=== PATIENT | female | born 1950 | race Caucasian/White ===

== ENCOUNTER 2017-02-13 17:18 | Emergency (ER) | payer BC ==
[~2017-02-13] VITALS: Ht 175.3 cm; Wt 115.0 kg
[2017-02-13 17:54] VITALS: BP 156/78
[2017-02-13] MEDS ORDERED: HYDR-971 PO (18:42)
--- NOTE | 2017-02-13 18:42 | PHYS DOC ---
Past History Past Medical History: Cancer, High Cholesterol, Hypertension Past Surgical History: Cancer Surgery, Hysterectomy Alcohol Use: None Drug Use: None Adult General Chief Complaint Chief Complaint: LOWEREXTREMITY INJURY HPI HPI Patient is a 66 year old female who presents with lower extremity injury. The patient states just prior to arrival she was loading some wood into a truck, her foot slipped on the gravel, & she experienced right ankle inversion injury. States she fell onto her knee, now complains of knee, calf, & ankle pain. Difficulty bearing weight prior to arrival. Denies dizziness or syncope contributing to fall, also denies any head trauma or loss of consciousness. No previous ankle or knee injuries or surgeries. Last tetanus < 5 years ago. Review of Systems Review of Systems Constitutional: Denies fever or chills HENT: Denies nasal congestion or sore throat Respiratory: Denies cough or shortness of breath Cardiovascular: Denies chest pain GI: Denies abdominal pain, nausea, vomiting Musculoskeletal: Reports lower extremity pain Integument: Denies rash Neurologic: Denies headache All other systems were reviewed and found to be within normal limits, except as documented in this note. Allergies Allergies Allergies Coded Allergies Type Severity Reaction Last Updated Verified morphine Allergy Unknown 02/13/17 Yes Physical Exam Physical Exam Constitutional: obese, no acute distress, non-toxic appearance. HENT: Normocephalic, atraumatic, bilateral external ears normal, oropharynx moist, nose normal. Eyes: conjunctiva normal, no discharge. Cardiovascular: no edema. Lungs & Thorax: no respiratory distress. Abdomen: nondistended. Skin: Warm, dry, no erythema, no rash. Extremities: right lower extremity mild hip & knee tenderness diffusely, no swelling or deformity to either joint. proximal tib/fib tenderness. lateral malleolus swelling & tenderness. no metatarsal tenderness with palpation. normal ROM to hip & knee without pain, painful to dorsiflex/plantarflex at ankle. straight leg raise is intact. dp/pt 2+, sensation intact to foot. tiny abrasion inferior to the patella, no laceration. Neurologic: Alert and oriented X 3, no focal deficits noted. Psychologic: Affect normal, judgement normal, mood normal. Current Patient Data Vital Signs Vital Signs Date Time Temp Pulse Resp B/P (MAP) Pulse Ox O2 Delivery O2 Flow Rate FiO2 02/13/17 17:54 98.3 79 20 96 Room Air EKG EKG [] Radiology/Procedures Radiology/Procedures XR R hip, 2 views, interpreted by me: no fracture or dislocation, no acute process. XR R knee, 3 views: interpreted by me: no fracture or dislocation, no acute process. XR R tib/fib, 3 views: interpreted by me: distal fibula fracture, otherwise no proximal fracture. XR R ankle, 3 views: interpreted by me: distal fibula fracture, oblique, minimally displaced, & nondisplaced posterior malleolus fracture, no dislocation.[] Course & Med Decision Making Course & Med Decision Making Pertinent Labs and Imaging studies reviewed. (See chart for details) The patient presents with lower extremity injury. She complained of knee, tib/ fib, ankle pain but developed hip pain while in x-ray. She has bimalleolar fracture, not significantly displaced, posterior ankle splint with padding applied by ED glass pulverizer equipment operator, placement confirmed by me with intact neurovascular status after splint applied. Crutches/crutch training provided. Recommend rest , elevation, nonweightbearing, norco PRN for pain. Follow up with Dr. Griffith in the orthopedic clinic within 1 week. Come back for neurovascular compromise or otherwise worsening condition. Discharged home in stable condition. [] Dragon Disclaimer Dragon Disclaimer This electronic medical record was generated, in whole or in part, using a voice recognition dictation system. Departure Departure: Impression: Primary Impression: Fracture of distal fibula Additional Impression: Fracture, posterior malleolus Disposition: 01 HOME, SELF-CARE Condition: STABLE Referrals: PCP,NO (PCP) MATTHEW GRIFFITH MD Patient Instructions: Ankle Fracture, [id number] Additional Instructions: You were seen in the emergency department today for ankle fracture. Please keep the splint clean & dry. Elevate leg, use crutches & do not bear weight on your ankle. Take norco as needed for severe pain. No drinking alcohol or driving while taking this medication. Follow up with Dr. Griffith in the orthopedic clinic within the next week. Come back for splint that is too tight or otherwise worsening condition. Scripts Hydrocodone Bit/Acetaminophen (NORCO 5-325 TABLET) 1 Each Tablet 1-2 TAB PO Q4-6HRS Y for SEVERE PAIN, #10 TAB Prov: MEL OWEN MD 02/13/17 Problem Qualifiers Primary Impression: Fracture of distal fibula Encounter type: initial encounter Fracture type: closed Fracture morphology : unspecified fracture morphology Laterality: right Qualified Codes: S82.831A - Other fracture of upper and lower end of right fibula, initial encounter for closed fracture Additional Impression: Fracture, posterior malleolus Encounter type: initial encounter Fracture type: closed Laterality: right Qualified Codes: S82.391A - Other fracture of lower end of right tibia, initial encounter for closed fracture MEL OWEN MD Feb 13, 2017 18:42
--- NOTE | 2017-02-14 07:32 | RAD ---
3 views right ankle radiograph 02/13/2017 Clinical indication: Fall with right ankle pain. Comparison: None. Findings: There is an oblique fracture of the lateral malleolus extending to the level of the syndesmosis with minimal posterior displacement of the distal fracture fragment. Joint spaces are maintained. There are 2 subcentimeter calcific densities adjacent to the medial malleolus which may be sequela of old injury. Infracalcaneal sprain. Enthesophyte formation at the insertion of the Achilles on the calcaneus. There is diffuse soft tissue swelling throughout the ankle. Impression: Minimally displaced lateral malleolus fracture extending to the level of the syndesmosis.
--- NOTE | 2017-02-14 07:33 | RAD ---
2 views right tibia and fibula radiograph 02/13/2017 Clinical indication: Fall with right leg pain. Comparison: None. Findings: Redemonstration of an oblique fracture of the distal fibula with minimal posterior displacement of the distal fracture fragment. There is diffuse soft tissue swelling about the ankle, most prominent laterally. Impression: Redemonstration of a minimally displaced distal fibular fracture.
--- NOTE | 2017-02-14 07:35 | RAD ---
3 views right knee radiograph 02/13/2017 Clinical indication: Fall with right knee pain. Comparison: None. Findings: No acute fracture or traumatic malalignment. Joint spaces are maintained. There is a small suprapatellar knee joint effusion. Impression: 1. No acute osseous abnormality. 2. Small suprapatellar knee joint effusion.
--- NOTE | 2017-02-14 07:36 | RAD ---
AP pelvis and 2 views right hip radiograph 02/13/2017 Clinical indication: Fall with right hip pain. Comparison: None. Findings: No evidence of acute bony pelvic or right hip fracture or traumatic malalignment. Joint spaces are maintained. No diastases of the symphysis pubis. There is moderate disc degeneration at L2-L3 with prominent osteophyte formation. Impression: No radiographic evidence of acute bony pelvic or right hip fracture or traumatic malalignment.
== END 2017-02-13 19:15 | disposition home or self-care (01) ==
LOC: ER 17:18
DX: S82.831A Other fracture of upper and lower end of right fibula, initial encounter for closed fracture (principal); S82.391A Other fracture of lower end of right tibia, initial encounter for closed fracture; E78.00 Pure hypercholesterolemia, unspecified; I10 Essential (primary) hypertension; Z88.5 Allergy status to narcotic agent; W01.0XXA Fall on same level from slipping, tripping and stumbling without subsequent striking against object, initial encounter; Y93.89 Activity, other specified; Y99.8 Other external cause status; Y92.89 Other specified places as the place of occurrence of the external cause
CPT/HCPCS: 29515; 73502; 73562; 73590; 73610; 99284-25

== ENCOUNTER 2020-04-20 23:00 | Emergency (ER) | payer MEDICARE, BC ==
[~2020-04-20] VITALS: Ht 175.3 cm; Wt 119.6 kg
[~2020-04-20 23:00] MED LIST: HYDR-3165 PO
--- NOTE | 2020-04-20 23:22 | PHYS DOC ---
Past History Past Medical History: Cancer, High Cholesterol, Hypertension Past Surgical History: Cancer Surgery, Hysterectomy Alcohol Use: None Drug Use: None Adult General HPI HPI Patient is a 69-year-old female who presents with a chief complaint of constipation. States she has not had a bowel movement since yesterday morning, which was very hard and caused her external hemorrhoids to bleed. States he has had hemorrhoids for a while and can have some bleeding when she is constipated. States she had small amounts of bright red blood when she wiped but no major bleeding. Denies any recent trauma, travel, fevers, cold/flu symptoms. States she is eating and drinking normally for her. States she is making urine normally for her with no dysuria or hematuria. Denies any chest pain, shortness of breath, abdominal pain. Review of Systems Review of Systems Review of systems otherwise unremarkable except for noted in HPI. Allergies Allergies Allergies Coded Allergies Type Severity Reaction Last Updated Verified morphine Allergy Unknown 02/13/17 Yes Physical Exam Physical Exam Constitutional: Well developed, well nourished, no acute distress, non-toxic appearance. [] HENT: Normocephalic, atraumatic, Eyes: conjunctiva normal, no discharge. [] Neck: Normal range of motion, Cardiovascular:Heart rate regular rhythm, no murmur [] Lungs & Thorax: Bilateral breath sounds clear to auscultation [] Abdomen: Bowel sounds normal, soft, no tenderness, no masses, no pulsatile masses. [] Skin: Warm, dry, no erythema, no rash. [] Back: No tenderness, Extremities: No tenderness, no cyanosis, ROM intact, no edema. [] Neurologic: Alert and oriented X 3, normal motor function, normal sensory function, no focal deficits noted. [] Psychologic: Affect normal, judgement normal, mood normal. [] EKG EKG [] Radiology/Procedures Radiology/Procedures Imaging notable for bowel gas and minimal to moderate amount of stool. [] Heart Score Risk Factors: Risk Factors: DM, Current or recent (<one month) smoker, HTN, HLP, family history of CAD, obesity. Risk Scores: Risk Factors: DM, Current or recent (<one month) smoker, HTN, HLP, family hi story of CAD, obesity. Course & Med Decision Making Course & Med Decision Making Patient is a very pleasant 69-year-old female who presents with constipation and external hemorrhoids Vital signs not concerning. Physical exam noted above. Patient alert and oriented, cooperative smiling in no acute distress. Benign abdominal exam. Patient did have external hemorrhoids on rectal exam/with pick up man, that were soft, and no bleeding noted. Given hydrocortisone suppository. Placed a small amount of let on external hemorrhoid. Patient had a large bowel movement while in the emergency department. After bowel movement patient stated she was feeling 100% better and all the discomfort had subsided. States that she is ready to go home and begin her light diet, and stool softeners as recommended. Advised to follow-up with primary care soon as she can to discuss home treatment for constipation and hemorrhoids. Advised to come back to the ED with new or concerning symptoms. Patient grateful, verbalized understanding and agreed with plan of discharge. [] Dragon Disclaimer Dragon Disclaimer This electronic medical record was generated, in whole or in part, using a voice recognition dictation system. Departure Departure: Impression: Primary Impression: Constipation Additional Impression: External hemorrhoid Disposition: 01 DC HOME SELF CARE/HOMELESS Condition: GOOD Referrals: SAVAGE SPENCER MD (PCP) Patient Instructions: Constipation, Adult, Hemorrhoids Additional Instructions: Please read all the attached information. You are given magnesium here in the ED which promotes bowel movements. Please begin a stool softener at home and continue using your Preparation H for your external hemorrhoids. Please be sure to drink plenty of water with your stool softeners and try to eat a light clear diet over the next several days avoiding any heavy or fatty foods. Please call your primary care physician first thing in the morning to update on ED visit and set up a post ER follow-up visit to discuss. Please come back to the emergency department immediately with any new or concerning symptoms. Problem Qualifiers CAROLYN SCHREIBER MD Apr 20, 2020 23:22
[2020-04-20] MEDS ORDERED: MAGNESIUM CITRATE 296 ML SOLUTION. PO ONE (23:45)
[2020-04-21] MEDS ORDERED: HYDROCORTISONE ACETATE 25 MG SUPP.RECT ONE (00:14)
[2020-04-21] MEDS ORDERED: LIDOCAINE/EPI/TETRACAINE TOPICAL GEL 3 ML. TP ONE (00:15)
[2020-04-21] MEDS ORDERED: HYDROCORTISONE 2.5% RECTAL CREAM 30GM TUBE. RC ONE (00:15)
[2020-04-21] MEDS ORDERED: HYDROCORTISONE ACETATE 25 MG SUPP.RECT PR PRN (00:30)
[2020-04-21 00:33] VITALS: BP 138/98
--- NOTE | 2020-04-21 00:35 | RAD ---
EXAM: XR ABDOMEN 2V 04/20/2020 12:03 AM CLINICAL INDICATION: Constipation, hemorrhoids, pain COMPARISON: Right hip radiograph 02/13/2017 TECHNIQUE: AP supine and upright views of abdomen FINDINGS: Bowel gas pattern is nonspecific and nonobstructive. Normal volume of stool. No pneumoperi toneum. Lung bases are clear. There is mild lumbar degenerative disc disease. Phleboliths in the pelv is. 2 circumscribed hyperdensities projecting over the left hemisacrum are unchanged from 2017. There is worsened, moderate left and mild right hip osteoarthrosis. IMPRESSION: No acute abdominal abnormality. Electronically signed by: Marisabel Mai MD (04/21/2020 12:32 AM) [id number]
== END 2020-04-21 00:33 | disposition home or self-care (01) ==
LOC: ER 23:00
DX: K59.00 Constipation, unspecified (principal); K64.4 Residual hemorrhoidal skin tags; E78.00 Pure hypercholesterolemia, unspecified; I10 Essential (primary) hypertension; Z90.710 Acquired absence of both cervix and uterus; Z88.5 Allergy status to narcotic agent
CPT/HCPCS: 74019; 99283